=== PATIENT | male | born 1965 | race Caucasian/White ===

== ENCOUNTER 2018-10-21 16:30 | Emergency (ER) | payer MEDICAID, SELFPAY ==
[2018-10-21 16:35] VITALS: BP 131/80; PULSE 98; RESP 16; TEMP 36.7; O2SAT 97
--- NOTE | 2018-10-21 16:36 | W.ED.GENAD ---
Discharge Plan Disposition Patient Disposition: HOME Condition: Improving Discharge Details Chief Complaint: Diabetes Clinical Impression: Insulin dependent diabetes mellitus, Encounter for medication refill Primary Care Provider: Sylvie Mcclure ED Provider: Joan Ferguson Home Meds and New Rx's Prescriptions: Continued losartan 50 mg Tablet 50 mg PO DAILY RF: 0 insulin glargine 100 unit/mL Solution 54 unit SUBCUT .EVENING RF: 0 insulin glargine 100 unit/mL Solution 60 unit SUBCUT DAILY RF: 0 atorvastatin 10 mg Tablet 10 mg PO .QHS RF: 0 aspirin 325 mg Tablet 325 mg PO DAILY RF: 0 acetaminophen [Tylenol Extra Strength] 500 mg Tablet 1,000 mg PO TID RF: 0 metformin 1,000 mg Tablet 1,000 mg PO BID RF: 0 ibuprofen 400 mg Tablet 400 mg PO .[id number] RF: 0 nitroglycerin 0.4 mg Tablet, Sublingual 1 mg sublingual .Q5 MIN X3 RF: 0 gabapentin 300 mg Capsule 900 mg PO TID RF: 0 omeprazole 20 mg Capsule,Delayed Release(Dr/Ec) 20 mg PO .QHS RF: 0 insulin lispro 100 unit/mL Solution RF: 0 multivitamin with minerals Tablet 1 tab PO DAILY RF: 0 zinc sulfate 220 (50) mg Capsule 220 mg PO DAILY RF: 0 cholecalciferol (vitamin D3) [Vitamin D3] 5,000 unit Tablet 5,000 unit PO DAILY RF: 0 Probiotic and Acidophilus 300-250 million cell-mg Capsule 2 cap PO RF: 0 Discharge Instructions Additional Instructions: Encourage hydration. Please stick with your diabetic diet. You were given your evening dose of Glargine here. Please go to pharmacy to grape picker your short acting and follow sliding scale as previously advised. Please keep your appointment tomorrow to discuss housing and further medication management. Please keep your appointment for follow up with physician. If you develop new/worsening symptoms please seek care urgently once again. Referrals: Sylvie Mcclure [Primary Care Provider] - Discharge Data Discharge Date/Time-TO BE ENTERED AT DEPARTURE: 10/21/18 18:10 Medical Decision Making Patient is a 53 year old male presenting today with c/c of medication refill. Called the prescribing provider who have called the insulin to his requested [facility] of choice, [facility]. They will call this in now. Also called [facility] who advised that they call cover his copays and that patient can grape picker medications. Exam benign, no evidence at this time of DKA, no fruity odor of breath, no tachypnea, patient asymptomatic. BGL 583 Followed the patients sliding scale, gave 15U insulin BGL 516 one hour after. Patient feeling well. Called [facility] again to check that medicaiton is ready. They are having difficulty getting Glargine covered, they will cover the sliding scale insulin. Have faxed patients sliding scale to pharmacy. We will give evening dose of long acting now, patient has appointment at 9AM to discuss medications and housing. They will help him get further medications. Patient will go to grape picker his medications after discharge. Encouraged hydration and diabetic diet. Advised on new/worsening symptoms and when to seek care urgently once again. All of his questions and concerns were addressed, he is in agreement this with plan. HPI General Mode of arrival: ambulatory. Date/Time Provider Initiated Documentation: 10/21/18 16:32. Limitations to Documentation: no limitations. Information obtained by: patient and RN notes reviewed. HPI Narrative: Patient is a 53 year old insulin dependent male presenting today with c/c of running out of his insulin 3 days ago. Reports that he takes daily metformin, long-acting insulin a.m. and p.m. as well as sliding scale throughout the day. Reports that he has not had any of these medications. Only medications he currently is taking his atorvastatin and gabapentin. 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 States that after leaving there, he is currently homeless living in his car. 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 He is employed. States that on , once he gets paid, he will be able to go to these places to speak with providers. However, at this point, he reports that a he has been taking his glucose and noting it to be much higher than typical. Is requesting a refill. Patient [facility]. Patient has had DKA once historically, does not feel like he is in this again. Rather, he is concerned that the elevation of his glucose that could cause him to have poor healing of his wound to his right foot. He denies any recent travel. No fevers or chills. No rash. Has been dressing the wound as advised by wound management. Denies any chest pain, shortness of breath. States that with insulin, he is typically in mid 200 range. Has noted his glucose to be around 500 over the past 3 days without using any of his medications. Related Data Home Medications Medication Instructions Recorded Confirmed Probiotic and Acidophilus 2 cap PO 10/21/18 acetaminophen [Tylenol Extra 1,000 mg PO TID 10/21/18 10/21/18 Strength] aspirin 325 mg PO DAILY 10/21/18 10/21/18 atorvastatin 10 mg PO .QHS 10/21/18 10/21/18 cholecalciferol (vitamin D3) 5,000 unit PO DAILY 10/21/18 10/21/18 [Vitamin D3] gabapentin 900 mg PO TID 10/21/18 10/21/18 ibuprofen 400 mg PO .[id number] 10/21/18 10/21/18 insulin glargine 54 unit SUBCUT .EVENING 10/21/18 10/21/18 insulin glargine 60 unit SUBCUT DAILY 10/21/18 10/21/18 insulin lispro 10/21/18 losartan 50 mg PO DAILY 10/21/18 10/21/18 metformin 1,000 mg PO BID 10/21/18 10/21/18 multivitamin with minerals 1 tab PO DAILY 10/21/18 10/21/18 nitroglycerin 1 mg SUBLINGUAL .Q5 MIN X3 10/21/18 10/21/18 omeprazole 20 mg PO .QHS 10/21/18 10/21/18 zinc sulfate 220 mg PO DAILY 10/21/18 10/21/18 Allergies Allergy/AdvReac Type Severity Reaction Status Date / Time empagliflozin Allergy Unverified 10/21/18 16:55 [From [facility]] Review of Systems Constitutional Reports as per HPI, Denies chills, Denies fever(s), Denies headache(s), Denies lethargy and Denies poor appetite Eyes Reports change in vision (states vision has been worsening) ENT Denies dizziness and Denies headache(s) Cardiovascular Reports as per HPI, Denies dyspnea and Denies dyspnea on exertion Respiratory Reports as per HPI, Denies chest congestion, Denies cough, Denies pain on inspiration, Denies pain with cough, Denies dyspnea, Denies dyspnea on exertion and Denies wheezing Gastrointestinal Reports as per HPI, Denies abdominal pain, Denies diarrhea, Denies nausea and Denies vomiting Genitourinary Denies system reviewed and no additional complaints, except as docu (denies change in urinary habits) Musculoskeletal Reports as per HPI and Denies back pain Integumentary/Breasts Reports as per HPI and Reports wounds Neurologic Reports as per HPI, Denies dizziness and Denies headache(s) Allergic/Immunologic Denies wheezing Exam Const General: cooperative, healthy appearing, comfortable, no acute distress and well developed Nutritional Appearance: well nourished and overweight Orientation: alert, awake and oriented x3 HENMT Head: normal to inspection Ears: hearing grossly normal bilaterally Mouth: moist mucous membranes Chest Chest: normal inspection of the chest, normal palpation of entire chest wall and no crepitus Resp Effort & Inspection: normal respiratory effort, able to speak in complete sentences and no respiratory distress Auscultation: clear to auscultation bilaterally, no rales, no rhonchi and no wheezes Cardio Rate: regular rate Rhythm: regular rhythm Heart Sounds: S1 normal and S2 normal Back/Spine/Pelvis Back: no CVA tenderness Thoracic/Lumbar Spine: thoracic and lumbar spine normal to inspection Skin Wounds: wounds noted (right medial distal foot, appears to be healing well) Neuro General: alert, awake and oriented x3 Cognition: normal cognition Speech: speech normal Gait: normal gait Extrem General: normal capillary refill, no pedal edema, no calf tenderness and normal gait Right lower extremity: abnormal to inspection (amputation great and second toe, healing well, dressed appropriately) Psych Appearance: grossly normal and well kempt Mental Status: mental status grossly normal Speech and Movement: speech and movement normal
[2018-10-21] MEDS: Insulin REGULAR-Human 100 UNITS/ML UNIT 15 UNITS SC (16:46)
[2018-10-21] MEDS: Insulin Glargine 100 UNITS/ML UNIT 54 UNITS SC (18:01)
[2018-10-21 18:15] VITALS: BP 131/70; PULSE 80; RESP 16; TEMP 36.7; O2SAT 97
== END 2018-10-21 18:10 | disposition home or self-care (01) ==
PROVIDERS: Emergency Provider Physician Assistant; PCP Nurse Practitioner Family
DX: E11.9 Type 2 diabetes mellitus without complications (principal); Z79.4 Long term (current) use of insulin
CPT/HCPCS: 36416; 82962; 96372; 99284; J1815

== ENCOUNTER 2018-10-26 10:57 | Emergency (ER) | payer MEDICAID, SELFPAY ==
[2018-10-26 11:04] VITALS: BP 139/78; PULSE 102; RESP 16; TEMP 36.8; O2SAT 98
--- NOTE | 2018-10-26 11:04 | ED.GENADUL_ITS ---
Discharge Plan Disposition Patient Disposition: HOME Discharge Details Chief Complaint: Orthopedic Clinical Impression: Heel pain Primary Care Provider: [facility] ED Provider: Kyle Yoder Home Meds and New Rx's Prescriptions: Continued losartan 50 mg Tablet 50 mg PO DAILY RF: 0 insulin glargine 100 unit/mL Solution 54 unit SUBCUT .EVENING RF: 0 insulin glargine 100 unit/mL Solution 60 unit SUBCUT DAILY RF: 0 atorvastatin 10 mg Tablet 10 mg PO .QHS RF: 0 aspirin 325 mg Tablet 325 mg PO DAILY RF: 0 acetaminophen [Tylenol Extra Strength] 500 mg Tablet 1,000 mg PO TID RF: 0 metformin 1,000 mg Tablet 1,000 mg PO BID RF: 0 ibuprofen 400 mg Tablet 400 mg PO .[id number] RF: 0 nitroglycerin 0.4 mg Tablet, Sublingual 1 mg sublingual .Q5 MIN X3 RF: 0 gabapentin 300 mg Capsule 900 mg PO TID RF: 0 omeprazole 20 mg Capsule,Delayed Release(Dr/Ec) 20 mg PO .QHS RF: 0 insulin lispro 100 unit/mL Solution RF: 0 multivitamin with minerals Tablet 1 tab PO DAILY RF: 0 zinc sulfate 220 (50) mg Capsule 220 mg PO DAILY RF: 0 cholecalciferol (vitamin D3) [Vitamin D3] 5,000 unit Tablet 5,000 unit PO DAILY RF: 0 Probiotic and Acidophilus 300-250 million cell-mg Capsule 2 cap PO RF: 0 Trulicity 1.5 mg/0.5 mL Pen Injector SUBCUT .WEEKLY RF: 0 Discharge Instructions Instructions: Plantar Fasciitis Exercises (GEN), Plantar Fasciitis (ED) Additional Instructions: You were seen in the emergency department today for evaluation of the foot and heel pain. You should follow-up with your primary care provider this coming week. Call on Saturday to schedule an appointment versus possible. Return to the emergency department immediately if you develop any fevers, weakness, or for any other concerning or worsening symptoms at all. Medical Decision Making This patient is a 53-year-old male who presents to the emergency department with chief complaint of left heel pain. Based on the history, exam, review of the x- rays, this is most likely due to plantar fasciitis. It is unlikely to be due to a fracture. There is no evidence of compartment syndrome or ischemia. X-ray was redness swelling with possible cellulitis. The patient does not have any erythema. It was sudden onset, does not appear to be consistent with cellulitis or foreign body. There are no wounds. Therefore, the patient will be discharged home, instructed to take anti-inflammatories rest and elevate the foot. He will be provided return precautions and discharge instructions. He agrees with the outpatient treatment plan. HPI My heel. This patient is a 53-year-old male who presents to the emergency department with chief complaint of left heel pain. He states that he was walking out of the store when he stepped down into the crunchiness effect. Since that time he has been having sharp pain in his left heel. It seems to radiate proximally. No fevers. No other recent illness such as vomiting, cold-like symptoms. Walking makes the pain worse. Nothing besides elevating it has made it better. Symptoms have been constant and this started just prior to arrival. General Date/Time Provider Initiated Documentation: 10/26/18 11:04 . Related Data Home Medications Medication Instructions Recorded Confirmed Probiotic and Acidophilus 2 cap PO 10/21/18 acetaminophen [Tylenol Extra 1,000 mg PO TID 10/21/18 10/26/18 Strength] aspirin 325 mg PO DAILY 10/21/18 10/26/18 atorvastatin 10 mg PO .QHS 10/21/18 10/26/18 cholecalciferol (vitamin D3) 5,000 unit PO DAILY 10/21/18 10/26/18 [Vitamin D3] gabapentin 900 mg PO TID 10/21/18 10/26/18 ibuprofen 400 mg PO .[id number] 10/21/18 10/26/18 insulin glargine 54 unit SUBCUT .EVENING 10/21/18 10/26/18 insulin glargine 60 unit SUBCUT DAILY 10/21/18 10/26/18 insulin lispro 10/21/18 losartan 50 mg PO DAILY 10/21/18 10/26/18 metformin 1,000 mg PO BID 10/21/18 10/26/18 multivitamin with minerals 1 tab PO DAILY 10/21/18 10/26/18 nitroglycerin 1 mg SUBLINGUAL .Q5 MIN X3 10/21/18 10/26/18 omeprazole 20 mg PO .QHS 10/21/18 10/26/18 zinc sulfate 220 mg PO DAILY 09/03/19 09/08/19 Trulicity mg SUBCUT .WEEKLY 10/26/18 Allergies Allergy/AdvReac Type Severity Reaction Status Date / Time empagliflozin Allergy Unverified 10/26/18 11:07 [From [facility]] General SHAJI: 3 Review of Systems Review of Systems Gen: no fevers. Card: no chest pain. Resp: No cough, difficulty breathing. Abd: no vomiting, abd pain. Ext: see HPI. Exam Narrative Exam Narrative: Gen: no acute distress, alert. Lung: no respiratory distress. Card: RRR. Lower extremity: 2+ DP pulse on the left. 1+ pitting edema bilaterally. There is tenderness to to palpation of the left plantar surface over the heel. No erythema or other swelling. Normal range of motion of the ankle. Neuro: speech normal, no gross motor deficits. Psych: alert and oriented to person, place time, normal affect. Skin: warm, intact.
--- NOTE | 2018-10-26 11:16 | DI.RAD_ITS ---
SYMPTOM/DIAGNOSIS: HEEL AND FOOT PAIN AFTER STEPPING DOWN LEFT FOOT AND CALCANEUS: Three views of the foot and two additional views of the calcaneus were obtained. There appears to be soft tissue swelling in the plantar aspect of the foot over the calcaneus. There are small osteophytes of the sites of attachment of plantar fascia and Achilles tendon on the calcaneus. No additional bony abnormality is seen. 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 No additional findings.
--- NOTE | 2018-10-26 12:03 | DI.VRAD_ITS ---
EXAM: XR Left Foot Complete EXAM DATE/TIME: 10/26/2018 11:09 AM CLINICAL HISTORY: 53 years old, male; Foot and heel; Left; Patient HX: Heel and plantar foot pain, diabetes TECHNIQUE: Imaging protocol: XR Left foot. Views: 3 or more views. COMPARISON: No relevant prior studies available. FINDINGS: Bones/joints: See Soft Tissues Finding. No acute bony abnormality evident. Soft tissues: There is asymmetric soft tissue thickening at the plantar level. Plantar spur noted. No extraluminal air identified. IMPRESSION: Soft tissue swelling at the plantar level with hypertrophic spur. Infection not excludable. COMMENT: Preliminary interpretation is based on receipt of 3 image(s). A final report will be issued subsequently. Dictated and Authenticated by: Sharon Saeed MD. Ordering:JAIRO Wright MD
--- NOTE | 2018-10-26 12:03 | DI.VRAD_ITS ---
EXAM: XR Left Calcaneus EXAM DATE/TIME: 10/26/2018 11:09 AM CLINICAL HISTORY: 53 years old, male; Foot and heel; Left; Patient HX: Heel and plantar foot pain, diabetes TECHNIQUE: Imaging protocol: XR of the Left calcaneus. Views: 2 or more views. COMPARISON: No relevant prior studies available. FINDINGS: Bones/joints: Inferior calcaneal spur noted. Soft tissues: There is diffuse soft tissue swelling at the medial level appreciated medially as well as inferiorly. Vasculature: Atherosclerotic change noted in the vasculature. IMPRESSION: Soft tissue swelling. Consider cellulitis. COMMENT: Preliminary interpretation is based on receipt of 2 image(s). A final report will be issued subsequently. Dictated and Authenticated by: Sharon Saeed MD. Ordering:JAIRO Wright MD
[2018-10-26] MEDS: Ketorolac 30 MG/ML VIAL IM (12:20)
[2018-10-26] MEDS: Acetaminophen 500 MG TAB 1000 MG PO (12:20)
[2018-10-26 12:55] VITALS: TEMP 36.6
== END 2018-10-26 12:58 | disposition home or self-care (01) ==
PROVIDERS: Emergency Provider Emergency Medicine; PCP Family Medicine
DX: M79.672 Pain in left foot (principal)
CPT/HCPCS: 96372; 99284; 73630; 73650; J1885